=== PATIENT | female | born 1960 | race Caucasian/White ===

== ENCOUNTER 2023-10-14 11:35 | Emergency (ER) | payer MEDICARE, MEDICAID, SELFPAY ==
[2023-10-14 11:58] VITALS: BP 163/75; PULSE 103; RESP 16; TEMP 37.2; O2SAT 99
[2023-10-14 12:10] VITALS: BP 163/75; PULSE 103; RESP 16; TEMP 37.2; O2SAT 99
--- NOTE | 2023-10-14 12:44 | ED.GENADULT ---
HPI - General Adult General Chief complaint: Recheck/Abnormal Lab/Rx Stated complaint: medication refill Time Seen by Provider: 10/14/23 12:29 Source: patient and RN notes reviewed Mode of arrival: ambulatory Limitations: no limitations History of Present Illness HPI narrative: Patient presents today requesting a refill of some medications. Her PCP left the practice and she does not have another appointment with a new physician until November 18. She is requesting refills of her atorvastatin and alprazolam. She was told by her PCPs office to come to urgent care to have her medications refilled. Related Data Home Medications Medication Instructions Recorded Confirmed alprazolam 1 mg tablet mg 10/14/23 atorvastatin 10 mg tablet mg 10/14/23 ergocalciferol (vitamin D2) 1,250 10/14/23 mcg (50,000 unit) capsule levothyroxine 50 mcg tablet mcg 10/14/23 Allergies Allergy/AdvReac Type Severity Reaction Status Date / Time No Known Allergies Allergy Unverified 10/14/23 11:52 Review of Systems Review of Systems: CONSTITUTIONAL: Denies body aches, fever, chills, or sweats. EYES: Denies visual changes, redness, or discharge. ENT: Denies rhinorrhea, congestion, sore throat, or otalgia. CARDIOVASCULAR: Denies chest pain, palpitations, or edema. RESPIRATORY: Denies cough or dyspnea. GASTROINTESTINAL: Denies abdominal pain, nausea, vomiting, or diarrhea. GENITOURINARY: Denies dysuria or hematuria. SKIN: Denies rash, itching, or wounds. MUSCULOSKELETAL: Denies back pain, joint pain, or myalgia. NEUROLOGIC: Denies headache, numbness, tingling, or weakness. PSYCH: + anxiety PMFSH Past Medical History Medical History (Updated 10/14/23 @ 12:48 by Flores Roque, [facility], ) Anxiety High cholesterol Hypothyroidism Comments At time of signature, I have reviewed and agree with nursing past medical, surgical, social and family history unless otherwise noted. Please see nursing chart for further information. There is no relevant family history pertinent to the presenting complaint Exam Narrative: GENERAL: Well-appearing, well-nourished, and in no acute distress. HEAD: Normocephalic, atraumatic. EYES: EOMI. No redness or drainage. Conjunctivae normal. ENT: Mucous membranes pink and moist. NECK: Normal AROM. CHEST: No respiratory distress. EXTREMITIES: Normal range of motion. No edema. SKIN: Warm, dry, no rash. Capillary refill normal. Normal skin turgor. NEURO: No focal deficits. Alert and oriented x3. Gait steady. PSYCH: Anxious and tearful Course Course Level of Care: Express Care Visit Vital Signs Vital signs: Vital Signs Temperature 98.9 F 10/14/23 11:58 Pulse Rate 103 H 10/14/23 11:58 Respiratory Rate 16 10/14/23 11:58 Blood Pressure 163/75 H 10/14/23 11:58 Pulse Oximetry 99 10/14/23 11:58 Oxygen Delivery Room Air 10/14/23 11:58 Temperature 98.9 F 10/14/23 12:10 Pulse Rate 103 H 10/14/23 12:10 Respiratory Rate 16 10/14/23 12:10 Blood Pressure 163/75 H 10/14/23 12:10 Pulse Oximetry 99 10/14/23 12:10 Oxygen Delivery Room Air 10/14/23 12:10 Reviewed Medical Decision Making MDM Narrative Medical decision making narrative: Discussed with patient that I would be happy to refill her statin, but refills of benzodiazepines for anxiety are not provide here at urgent care. Instructed patient to call her PCPs office back and let them know this and see if they will give her a refill until she can get to her appointment. Patient is frustrated and angry. Vital Signs Vital Signs: Vital Signs Temperature 98.9 F 10/14/23 11:58 Pulse Rate 103 H 10/14/23 11:58 Respiratory Rate 16 10/14/23 11:58 Blood Pressure 163/75 H 10/14/23 11:58 Pulse Oximetry 99 10/14/23 11:58 Oxygen Delivery Room Air 10/14/23 11:58 Temperature 98.9 F 10/14/23 12:10 Pulse Rate 103 H 10/14/23 12:10 Respiratory Rate 16 10/14/23 12:10 Blood P
== END 2023-10-14 13:02 | disposition home or self-care (01) ==
PROVIDERS: Emergency Provider Nurse Practitioner
DX: E78.00 Pure hypercholesterolemia, unspecified (principal); Z76.0 Encounter for issue of repeat prescription; E03.9 Hypothyroidism, unspecified
CPT/HCPCS: 99211; G0463